=== PATIENT | female | born 1955 | race Caucasian/White ===

== ENCOUNTER → 2016-12-07 | Outpatient (CLI) | payer OTHER ==
--- NOTE | 2016-12-08 10:06 | MAM ---
History: Well woman exam. Date of exam: 12/07/2016 Services provided: Bilateral full field digital screening mammography. CAD, the images were reviewed with R2 computer aided detection. FINDINGS: Glandular tissue is scattered glandular contour with increased mammographic density. Study is compared with 2014 study. Glandular pattern remains stable. Small grouped calcifications are demonstrated in the right breast 11:00 approximately 5 to 6 cm from the nipple, appear new since 2014 and 2015 exams and may be associated with a density. No dominant mass, architectural distortion or clustered microcalcification on the left. IMPRESSION: Incomplete study Recommendation: True lateral view right breast with spot compression magnification views in the true lateral and craniocaudal projections. BIRAD CATEGORY: 0 INCOMPLETE Electronically signed by: Chaparrita Cramer MD 12/08/2016 10:05 AM CDT
== END | disposition home or self-care (01) ==
LOC: MAMMO 14:07
PROVIDERS: ATTEND Nurse Practitioner Women's Health
DX: Z12.31 Encounter for screening mammogram for malignant neoplasm of breast (principal)

== ENCOUNTER → 2017-05-02 | Outpatient (CLI) | payer OTHER ==
--- NOTE | 2017-05-02 15:18 | MAM ---
EXAM DESCRIPTION: Diagnostic Mammo,Right CLINICAL HISTORY: 61 yearsFemaleABNORMAL MAMMOGRAM COMPARISON: 2-D digital screening bilateral examination 12/07/2016. TECHNIQUE: 2-D digital magnification spot images of the middle third of the upper-outer quadrant of the right breast in the CC and LM projections. Right breast 2-D digital LM full-field image. CAD was utilized. FINDINGS: Right breast parenchymal density pattern is: heterogeneously dense breast tissue which can obscure small lesions. At the 1100 clock position of the right breast is a group of small microcalcifications which are predominantly rounded with some heterogeneous fatty. No definite mass. There are other solitary microcalcifications scattered throughout the denser breast parenchyma. No skin thickening or nipple retraction. IMPRESSION: BI-RADS CATEGORY: 3 - PROBABLY BENIGN FINDING - Short Interval Follow-Up Suggested FOLLOW-UP: Short-interval follow-up surveillance mammography right breast coinciding with routine follow-up digital mammographic imaging of the left breast in November 2017. The technologist explained the findings to the patient in person. Written communication explaining the results and follow-up will be mailed to the patient and referring care provider. Electronically signed by: Leopoldo Hook MD 05/02/2017 3:17 PM CDT
== END ==
LOC: MAMMO 14:16
PROVIDERS: ATTEND Nurse Practitioner Women's Health
DX: R92.8 Other abnormal and inconclusive findings on diagnostic imaging of breast (principal)

== ENCOUNTER → 2017-12-26 | Outpatient (CLI) | payer OTHER ==
--- NOTE | 2017-12-26 12:09 | MAM ---
EXAM DESCRIPTION: Diagnostic Mammo,Bilateral: Digital Mammography CLINICAL HISTORY: 62 yearsFemale6 MONTH FOLLOW UP group of calcifications in the right breast.. COMPARISON: 2-D diagnostic right breast mammographic examination 05/02/2017. Bilateral 2-D screening mammographic examination 12/07/2016. Reports from prior examinations also reviewed. TECHNIQUE: Bilateral CC LM MLO projection full-field images, 3-D tomosynthesis digital mammographic technique. Also bilateral synthesized CC MLO LM full-field images. 2-D digital magnification CC and LM anterior right breast. CAD utilized for 2-D images. FINDINGS: The breast parenchymal density pattern is: Heterogeneously dense breast tissue, which may obscure small masses. No skin thickening or nipple retraction bilateral axillary lymph nodes. Bilateral solitary microcalcifications. Again seen at the 1100 clock position of the right breast is a group of microcalcifications. These are minimally heterogeneous but stable since the prior study. Associated with the denser fibroglandular tissues as before. No focal, stellate mass or density, focal asymmetry , and no suspicious microcalcifications left breast. Stable mammograms compared to prior study, taking into account differences in mammographic technique IMPRESSION: BI-RADS CATEGORY: 3 - PROBABLY BENIGN. Management: Short interval (6-month) follow-up diagnostic digital mammography of the right breast. Written communication explaining the IMPRESSION and follow-up will be mailed to the patient and referring care provider Electronically signed by: Leopoldo Hook MD 12/26/2017 12:07 PM CDT
== END ==
LOC: MAMMO 11:03
PROVIDERS: ATTEND Nurse Practitioner Women's Health
DX: R92.8 Other abnormal and inconclusive findings on diagnostic imaging of breast (principal)
CPT/HCPCS: 77066; G0279

== ENCOUNTER → 2018-07-25 | Outpatient (CLI) | payer OTHER ==
--- NOTE | 2018-07-27 08:39 | MAM ---
EXAM DESCRIPTION: 3D Diagnostic, Right: Digital Mammography CLINICAL HISTORY: 62 yearsFemale6 MONTH FOLLOW UP . Follow-up calcifications in the right breast. No personal history of breast cancer. Remote family history of breast cancer. No childbirth. Hysterectomy 3 years ago. Has taken HRT more than 5 years ago. Benign right breast biopsy. Lifetime risk of developing breast cancer (Tyrer-Cuzick model) percentage is 9.9. COMPARISON: Bilateral diagnostic breast tomosynthesis 12/26/2017.. TECHNIQUE: Right CC LM MLO projection full-field images, digital mammographic tomosynthesis technique. Digital spot magnification anterior middle third of the right breast. CAD not utilized. FINDINGS: Right breast parenchymal density pattern is: Heterogeneously dense breast tissue, which may obscure small masses. No skin thickening or nipple retraction axillary lymph nodes. Again noted are microcalcifications mostly within the dense is fibroglandular tissues, lateral to the posterior nipple line, in the middle third of the right breast. No new focal, stellate mass or density, focal asymmetry , and no suspicious microcalcifications right breast. Stable mammograms compared to prior study. IMPRESSION: Benign exam. BIRAD CATEGORY: 2 BENIGN FINDINGS. RECOMMENDATIONS: FOLLOW UP: Return to routine digital bilateral mammographic screening, December 2018. (1 year anniversary of prior bilateral digital mammographic examination.) Written communication explaining the IMPRESSION and follow-up, will be mailed to the patient and referring health care provider. According to the [employer], yearly mammograms are recommended starting at age 40 and continuing as long as a woman is in good health. Any breast change noted on a breast self-exam should be reported promptly to the patient's healthcare provider. Breast MRI is recommended for women with an approximately 20-25% or greater lifetime risk of breast cancer, including women with a strong family history of breast or ovarian cancer and women who have been treated for Hodgkin's disease. A negative mammographic report should not delay tissue diagnosis in patients with significant clinical history or physical findings. Extremely dense breast tissue limits the sensitivity of digital mammography. Electronically signed by: Leopoldo Hook MD 07/27/2018 8:38 AM [facility]
== END ==
LOC: MAMMO 12:53
PROVIDERS: ATTEND Nurse Practitioner Women's Health
DX: R92.0 Mammographic microcalcification found on diagnostic imaging of breast (principal)
CPT/HCPCS: 77065; G0279

== ENCOUNTER → 2019-03-26 | Outpatient (CLI) | payer OTHER ==
--- NOTE | 2019-03-28 11:35 | MAM ---
EXAM DESCRIPTION: 3D Screening BILATERAL : Digital Mammography. CLINICAL HISTORY: 63 years Female ANNUAL SCREENING . No complaints. No personal history of breast cancer. Remote family history of breast cancer. No childbirth. Postmenopausal. Taking HRT 5 or more years ago. Prior benign right breast biopsy. Lifetime risk of developing breast cancer (Tyrer-Cuzick model)(%): 9.9. COMPARISON: Right breast diagnostic digital tomosynthesis 07/25/2018. Bilateral diagnostic digital breast tomosynthesis 12/26/2017 TECHNIQUE: Bilateral CC and MLO projection full-field images, digital tomosynthesis mammographic technique. Bilateral digital 2-D full-field MLO images. CAD not available for tomosynthesis or 2-D images. FINDINGS: The breast parenchymal density pattern is: Heterogeneously dense breast tissue, which may obscure small masses. No skin thickening or nipple retraction. Bilateral solitary microcalcifications. Bilateral axillary lymph nodes. No new focal, stellate mass or density, focal asymmetry , and no suspicious microcalcifications bilaterally. Stable mammograms compared to prior study. Taking into account, differences in mammographic technique. IMPRESSION: Benign exam. BIRAD CATEGORY: 2 BENIGN FINDINGS. RECOMMENDATIONS: FOLLOW UP: Routine digital bilateral mammographic screening, one year interval from February 2019. Written communication explaining the IMPRESSION and follow-up, will be mailed to the patient and referring health care provider. According to the [employer], yearly mammograms are recommended starting at age 40 and continuing as long as a woman is in good health. Any breast change noted on a breast self-exam should be reported promptly to the patient's healthcare provider. Breast MRI is recommended for women with an approximately 20-25% or greater lifetime risk of breast cancer, including women with a strong family history of breast or ovarian cancer and women who have been treated for Hodgkin's disease. A negative mammographic report should not delay tissue diagnosis in patients with significant clinical history or physical findings. Extremely dense breast tissue limits the sensitivity of digital mammography. Electronically signed by: Leopoldo Hook MD 03/28/2019 11:33 AM CDT
== END ==
LOC: MAMMO 09:00
PROVIDERS: ATTEND Family Medicine
DX: Z12.31 Encounter for screening mammogram for malignant neoplasm of breast (principal)

== ENCOUNTER → 2020-07-01 | Outpatient (CLI) | payer OTHER | LOC: GMAJ 16:42 | PROVIDERS: ATTEND Family Medicine | DX: Z79.899 Other long term (current) drug therapy (principal) ==